=== PATIENT | female | born 1940 | race Caucasian/White ===

== ENCOUNTER 2018-12-03 12:55 | Outpatient (CLI) | payer MEDICARE ==
[2018-12-03] MEDS ORDERED: Gadobenate Dimeglumine 529 MG/1 ML (20ML VIAL) ONE (13:27)
--- NOTE | 2018-12-03 16:43 | MRI ---
MRI BRAIN WITH AND WITHOUT CONTRAST: 12/03/18 HISTORY: 78-year-old female with nausea. TECHNIQUE: Multiple sequences obtained in axial, sagittal, and coronal planes; pre and post IV injection of gado linium-based contrast agent: 5 mL Multihance (half dose because of GFR of 43). FINDINGS: The ventricles are normal in size and configuration. There is no restricted diffusion, abnormal intr aaxial enhancement, mass, midline shift or any other mass effect, recent intraaxial hemorrhage, or ex traaxial fluid collection. There are mild chronic ischemic white matter changes in the periventricula r and deep cerebral white matter, not unusual for age 78 years. IMPRESSION: 1. Mild chronic ischemic white matter changes. 2. Otherwise negative. jn[] POS: [facility]
== END 2018-12-03 12:56 | disposition home or self-care (01) ==
LOC: BICMRI 12:55
PROVIDERS: ATTEND Physician Assistant Medical
DX: R68.81 Early satiety (principal); R11.0 Nausea; R63.4 Abnormal weight loss
CPT/HCPCS: 70553; 82565

== ENCOUNTER 2018-12-14 07:23 | Outpatient (CLI) | payer MEDICARE ==
--- NOTE | 2018-12-14 12:57 | NM ---
NM Gastric Empty Scan W/Meal History: Nausea. Unexplained weight loss. CT August 2018 Comparison: Planar abdominal imaging was obtained after oral administration 2.1 mCi technetium 99m blanc lfur colloid. Findings: There is 27% emptying at 30 minutes, 53% emptying at 1 hour, 79% emptying at 2 hours, and 1 00% emptying at 3 hours. The T 1/2 is 56 minutes. Impression: Normal gastric emptying.
== END 2018-12-14 07:24 | disposition home or self-care (01) ==
LOC: NM 07:23
PROVIDERS: ATTEND Physician Assistant Medical
DX: R63.4 Abnormal weight loss (principal); R68.81 Early satiety; R11.0 Nausea
CPT/HCPCS: 78264; A9541

== ENCOUNTER 2018-12-18 08:38 | Outpatient (CLI) | payer MEDICARE ==
--- NOTE | 2018-12-18 12:02 | CT ---
CT CHEST WITH AND WITHOUT CONTRAST: Multiple axial tomograms were obtained through the chest without IV enhancement. This was followed b y tomograms through the chest with IV enhancement which was performed predominantly in the arterial p hase. INDICATION: Weight loss. History of right breast cancer with lumpectomy and radiation. No prior chest CT availa ble for comparison. FINDINGS: The lungs show chronic parenchymal change with mild hyperexpansion. Mild peripheral interstitial thi ckening and stranding. There is a 4-5 mm calcified granuloma in the left upper lobe. No other evide nce of pulmonary mass or nodule. No infiltrate or effusion. There are nonspecific mediastinal and hilar lymph nodes. There is a carinal lymph node measuring 1.4 cm. There is a right hilar lymph node measuring 1.2 cm. A nonspecific AP window node and left maría r lymph nodes are also noted. The arterial enhancement phase shows unremarkable thoracic aorta with mild atherosclerotic calcificat ion present. The pulmonary arteries are opacified and there is no evidence of proximal pulmonary emb olus. Images through the upper abdomen unremarkable. Osseous structures unremarkable. Postop changes in the right breast are noted with a focal nodular opacity at the apparent lumpectomy site. Numerous clips in the right axilla without adenopathy. IMPRESSION: 1. There are chronic lung parenchymal changes as described above. 2. Nonspecific mediastinal and hilar lymph nodes. 3. Postop changes right breast and axilla. 4. No evidence of acute process. POS: [facility]
[2018-12-18] MEDS ORDERED: ISOVUE-370 76%-LOCM 1 ML ONE (16:28)
== END 2018-12-18 08:39 | disposition home or self-care (01) ==
LOC: BICCT 08:38
PROVIDERS: ATTEND Physician Assistant Medical
DX: R68.81 Early satiety (principal); R63.4 Abnormal weight loss; R11.0 Nausea; Z98.890 Other specified postprocedural states
CPT/HCPCS: 71270

== ENCOUNTER 2024-05-19 08:06 | Outpatient (CLI) | payer MEDICARE | END 2024-05-19 08:07 | disposition home or self-care (01) | LOC: BICMAMMO 08:06 | PROVIDERS: ATTEND Physician Assistant | DX: N63.10 Unspecified lump in the right breast, unspecified quadrant (principal) | CPT/HCPCS: 76642; 77066; G0279 ==